=== PATIENT | female | born 2005 | race African-American/Black ===

== ENCOUNTER 2024-10-03 12:31 | Emergency (ER) | payer OTHER ==
[~2024-10-03] VITALS: Ht 162.6 cm; Wt 45.0 kg
[2024-10-03 12:37] VITALS: O2SAT 100
[2024-10-03 13:27] LABS: CLARITY URINE CLEAR (CLEAR); COLOR URINE YELLOW (YELLOW); GLUCOSE URINE NEGATIVE (NEGATIVE); KETONES URINE NEGATIVE (NEGATIVE); LEUKOCYTE ESTERASE URINE 3+ (NEGATIVE); NITRITE URINE NEGATIVE (NEGATIVE); OCCULT BLOOD URINE NEGATIVE (NEGATIVE); PH URINE 7.5 (4.5-8.0); PROTEIN URINE NEGATIVE (NEGATIVE); SPECIFIC GRAVITY URINE 1.013 (1.005-1.030); UROBILINOGEN URINE 0.2 E.U./dL (0.2-1.0)
[2024-10-03 13:48] LABS: BACTERIA URINE 2+; SQUAMOUS EPITHELIAL CELL URINE 3+ /lpf (RARE/1+)
[2024-10-03 13:49] LABS: RBC URINE 0-2 /hpf (0-2)
[2024-10-03 13:50] LABS: WBC URINE 25-50 /hpf (0-2)
[2024-10-03] MEDS ORDERED: METR-167 MT (14:53)
[2024-10-03] MEDS ORDERED: NITR100C MT (14:53)
[2024-10-03 15:08] VITALS: BP 102/58; PULSE 87; RESP 16; TEMP 36.8; O2SAT 100
[2024-10-07 04:10] LABS: CHLAMYDIA TRACHOMATIS NAA Negative (Negative); NEISSERIA GONORRHOEAE NAA Positive (Negative)
== END 2024-10-03 15:17 | disposition home or self-care (01) ==
LOC: ER 12:31
DX: N39.0 Urinary tract infection, site not specified (principal); A59.9 Trichomoniasis, unspecified
CPT/HCPCS: 87491; 87591; 81003; 81025; 87086; 87186; 87210; 87077; 99284; Z7610